=== PATIENT | female | born 1970 | race Hispanic/Latino ===

== ENCOUNTER 2019-08-11 12:06 | Day surgery (SDC) | payer SELFPAY ==
--- NOTE | 2019-08-11 14:21 | RAD ---
EXAM: 3 views of the right thumb HISTORY: Laceration to the thumb with a knife at work COMPARISON: None FINDINGS: There is no evidence of acute fracture or dislocation. No soft tissue swelling is seen. No degenerative changes are present. No radiopaque foreign body is seen. No radiopaque foreign body is seen. IMPRESSION: No evidence of acute osseous abnormality.
[2019-08-11] MEDS ORDERED: EPHEDRINE 25 MG/5 ML SYRINGE ONE (14:31)
[2019-08-11] MEDS ORDERED: Dexamethasone 20 MG/5 ML VIAL ONE (14:31)
[2019-08-11] MEDS ORDERED: Ondansetron PF 4 MG/2 ML Vial ONE (14:31)
[2019-08-11] MEDS ORDERED: Lidocaine 1% PF 5 ML VIAL ONE (14:31)
[2019-08-11] MEDS ORDERED: PROPOFOL 200 MG/20 ML VIAL ONE (14:31)
[2019-08-11] MEDS ORDERED: Adacel (T-DAP) 0.5 ML SYRINGE ONE (14:40)
[2019-08-11 14:59] LABS: #Eosinphils 0.1 thou/uL (0.0-0.7); #Monocytes 0.2 thou/uL (0.11-0.59); %Basophils 0.5 % (0.0-1.0); %Lymphocytes 32.1 % (21.0-51.0); %Monocytes 3.1 % (0.0-10.0); %Neutrophils 63.4 % (42.0-75.0); Hemoglobin 14.8 g/dL (12.0-16.0); Mean Corpuscular HGB CONC 34.9 g/dL (32.0-36.0); Mean Corpuscular Hemoglobin 34.1 pg (27.0-31.0); Mean Corpuscular Volume 97.6 fL (78.0-98.0); Platelet Count 248 thou/uL (130-400); RBC Distribution Width 12.1 % (11.5-14.5); Red Blood Cell (RBC) Count 4.34 mill/uL (4.20-5.40); White Blood Cell (WBC) Count 6.3 thou/uL (4.8-10.8)
[2019-08-11 15:20] LABS: ALT (SGPT) 12 U/L (8-55); AST (SGOT) 16 U/L (5-34); Albumin 4.9 g/dL (3.5-5.0); Alkaline Phosphatase 65 U/L (40-110); Anion Gap 12 mmol/L (10-20); BUN (Urea Nitrogen) 14 mg/dL (7.0-18.7); Bilirubin, Total 0.5 mg/dL (0.2-1.2); Calc. Creatinine Clearance 0 mL/min (70-130); Calcium 10.3 mg/dL (7.8-10.44); Carbon Dioxide 26 mmol/L (22-29); Chloride 105 mmol/L (98-107); Estimated GFR-MDRD 85; Globulin 2.9 g/dL (2.4-3.5); Glucose 84 mg/dL (70-105); Potassium 4.3 mmol/L (3.5-5.1); Protein, Total 7.8 g/dL (6.0-8.3); Sodium 139 mmol/L (136-145)
[2019-08-11] MEDS ORDERED: Scopolamine 1.5 mg/72 hour Patch ONE (18:30)
[2019-08-11] MEDS ORDERED: Fentanyl 100 MCG/2 ML VIAL ONE (18:46)
[2019-08-11] MEDS ORDERED: Betamet Acet/Betamet Na Ph 30 MG/5 ML VIAL ONE (18:47)
[2019-08-11] MEDS ORDERED: Bupivacaine PF 0.5% 30 ML VIAL ONE (18:47)
[2019-08-11] MEDS ORDERED: Bacitracin Zinc Ointment 30 gm TUBE ONE (18:48)
[2019-08-11] MEDS ORDERED: Sodium Chloride 0.9% 10 ML ONE (18:48)
[2019-08-11] MEDS ORDERED: Thrombin 5000 UNITS/5 ML VIAL ONE (18:48)
[2019-08-11] MEDS ORDERED: Promethazine HCl 25 MG/ML VIAL ONE (20:25)
[2019-08-11] MEDS ORDERED: Ketorolac Tromethamine 30 MG/ML VIAL ONE (20:29)
--- NOTE | 2019-08-12 08:15 | OP ---
DATE OF PROCEDURE: 08/11/2019 PREOPERATIVE DIAGNOSIS: Left thumb zone 2 extensor pollicis longus laceration with 2.0 cm wound. POSTOPERATIVE DIAGNOSIS: Left thumb zone 2 extensor pollicis longus laceration with 2.5 cm wound. PROCEDURES PERFORMED: 1. Zone 2 left thumb extensor tendon repair. 2. Wound debridement, depth down to but not including bone. 3. Closure of wound 2.5 cm, left thumb. TOURNIQUET TIME: 21 minutes. ESTIMATED BLOOD LOSS: 10 mL or less, 5 complete lacerations but extra-articular. DESCRIPTION OF PROCEDURE: After successful general endotracheal anesthesia, the limb was prepped and draped. Time-out was done appropriately. The patient continued to have the droop or flexion attitude without response, tenodesed at the left thumb interphalangeal joint. We then gave 10 mL of 0.5% metacarpophalangeal joint block with 0.5% Marcaine and no epinephrine. We then exsanguinated the limb, inflated tourniquet to 250 mmHg pressure, extended the transverse incision in a zigzag fashion 1.5 cm distal and 1 cm proximal. We immediately found that the cutaneous nerves were spared. There was a complete laceration of extensor pollicis longus beginning at 0.15 mm proximal to the joint line. There was no joint involvement. We irrigated the area after debridement using the following techniques. 1. Use of [place] blade, tenotomy scissor, and a curette. 2. Irrigated with 1 L normal saline on bulb syringe pressure with antibiotics inside. 3. It was excisional technique. 4. There was no gross contamination seen. Once we had done this, we continued hemostasis with the tourniquet up, closed the underlying soft tissue between the tendon and the bone and made sure it was not to joint capsule, no open joint was seen. Once we finished this irrigation, we then turned our attention to the extensor tendon which was completely lacerated a distance of 15 or 16 mm proximal to the joint line. We then placed a [id number] interrupted 4-0 Prolene, dyed, into the incision and this was done x4 until we crossed all raphae to include the anatomical structures listed above. Once we had done this, we deflated the tourniquet. No gap formation to 45 degrees of IP joint flexion and the patient then left the operating room with closure of wound hemostasis, interrupted 4-0 nylon simple pattern, bulky dressing and a splint with a thumb attachment to hold the thumb in extension. Job ID: [id number]
== END 2019-08-11 20:19 | disposition home or self-care (01) ==
LOC: ERS 12:06 → SDC 16:38 → ERS 16:38 → SDC 17:10
PROVIDERS: ATTEND Orthopaedic Surgery Hand Surgery
PROC: 0LQ60ZZ Repair Left Lower Arm and Wrist Tendon, Open Approach (ICD-10-PCS; principal; 2019-08-11)
DX: S56.322A Laceration of extensor or abductor muscles, fascia and tendons of left thumb at forearm level, initial encounter (principal); W26.0XXA Contact with knife, initial encounter; Y99.0 Civilian activity done for income or pay
CPT/HCPCS: 80053; 85025; 90715; J0690; J0702; J1100; J1885; J2001; J2405; J2550; J2704; J3010; J3490; S0020